=== PATIENT | female | born 1950 | race Caucasian/White ===

== ENCOUNTER 2017-08-27 01:25 | Emergency (ER) | payer SELFPAY ==
[~2017-08-27] VITALS: Ht 170.2 cm; Wt 74.4 kg
[~2017-08-27 01:25] MED LIST: ALPR.25 PO
[2017-08-27 01:40] VITALS: BP 190/84; PULSE 73; RESP 18; TEMP 97.6; O2SAT 97
[2017-08-27 02:40] VITALS: RESP 16; O2SAT 96
[2017-08-27 02:49] LABS: AUTOMATED NEUTROPHIL # 4.3 TH/MM3 (1.8-7.7); BASOPHIL % 0.5 % (0.0-2.0); EOSINOPHIL # 0.1 TH/MM3 (0-0.4); EOSINOPHIL % 1.6 % (0.0-4.0); HEMOGLOBIN 14.1 GM/DL (11.6-15.3); LYMPH % 28.8 % (9.0-44.0); MEAN CELL VOLUME 89.8 FL (80.0-100.0); MEAN CORPUSCULAR HEMOGLOBIN 30.8 PG (27.0-34.0); MEAN CORPUSCULAR HGB CONC 34.3 % (32.0-36.0); MEAN PLATELET VOLUME 7.4 FL (7.0-11.0); MONO % 8.4 % (0.0-8.0); MONOCYTE # 0.6 TH/MM3 (0-0.9); NEUT % 60.7 % (16.0-70.0); PLATELET COUNT 245 TH/MM3 (150-450); RED BLOOD COUNT 4.57 MIL/MM3 (4.00-5.30); RED CELL DISTRIBUTION WIDTH 12.3 % (11.6-17.2)
--- NOTE | 2017-08-27 02:50 | PD ---
HPI Chief Complaint: Hypertension Time Seen by Provider: 02:22 Travel History International Travel<30 days: No Contact w/Intl Traveler<30days: No Traveled to known affect area: No History of Present Illness HPI 67-year-old female presents to the emergency department by private transportation for evaluation of elevated blood pressure. Patient states she has intermittent and sporadic blood pressure elevation but is not treated for hypertension and is not on any antihypertensive medications. Patient states that periodically she will feel like she has a tremor or feel like she is shaking or that she has a dry throat and when she does have these episodes. Patient is unable to identify specific exacerbating or alleviating factors. Patient does report that she did have an argument with her father this evening prior to onset of symptoms. Patient denies any associated symptoms such as headache visual disturbance confusion speech disturbance chest pain palpitations shortness of breath nausea vomiting neck jaw back shoulder arm or abdominal pain and also denies any upper or lower extremity numbness tingling or weakness or ataxia of gait. Patient previously has been treated with antianginals but has chosen not to take them. PFSH Past Medical History Narrative Medical Palpitations anxiety situational hypertension; breast augmentation time intact; nursing notes reviewed Anxiety: Yes Heart Rhythm Problems: Yes (hx of palpaitations) Diminished Hearing: No Tetanus Vaccination: > 5 Years Influenza Vaccination: No ?: Not Menopausal: Yes : 1 Para: 1 Tubal Ligation: Yes Past Surgical History Other Surgery: Yes (tummy tuck, breast augmentation, nose and bra lift) Social History Alcohol Use: No Tobacco Use: No Substance Use: No Allergies-Medications (Allergen,Severity, Reaction): Coded Allergies: doxycycline (Unverified Allergy, Unknown, 08/27/17) minocycline (Unverified Allergy, Unknown, 08/27/17) tigecycline (Unverified Allergy, Unknown, 08/27/17) Reported Meds & Prescriptions Reported Meds & Active Scripts Active Xanax (Alprazolam) 0.25 Mg Tab 0.25 Mg PO Q12HR PRN Amlodipine (Amlodipine Besylate) 5 Mg Tab 2.5 Mg PO DAILY Review of Systems Except as stated in HPI: all other systems reviewed are Neg Physical Exam Narrative GENERAL: Well-developed well-nourished female no acute distress or respiratory distress; GCS 15 SKIN: Warm and dry. HEAD: Atraumatic. Normocephalic. EYES: Pupils equal and round. No scleral icterus. No injection or drainage. ENT: No nasal bleeding or discharge. Mucous membranes pink and moist. NECK: Trachea midline. No JVD. CARDIOVASCULAR: Regular rate and rhythm. RESPIRATORY: No accessory muscle use. Clear to auscultation. Breath sounds equal bilaterally. GASTROINTESTINAL: Abdomen soft, non-tender, nondistended. Hepatic and splenic margins not palpable. MUSCULOSKELETAL: Extremities without clubbing, cyanosis, or edema. No obvious deformities. NEUROLOGICAL: Awake and alert. No obvious cranial nerve deficits. Motor grossly within normal limits. Five out of 5 muscle strength in the arms and legs. No limb ataxia. No pronator drift. Sensory exam grossly intact as tested. DTRs 2+ and equal bilaterally without clonus. Normal speech. PSYCHIATRIC: Appropriate mood and affect; insight and judgment normal. Data Data Last Documented VS Vital Signs Date Time Temp Pulse Resp B/P (MAP) Pulse Ox O2 Delivery O2 Flow Rate FiO2 08/27/17 04:09 62 16 156/69 (98) 97 08/27/17 02:52 Room Air 08/27/17 01:40 97.6 Orders Orders Electrocardiogram (08/27/17 02:22) Basic Metabolic Panel (Bmp) (08/27/17 02:22) B-Type Natriuretic Peptide (08/27/17 02:22) Ckmb (Isoenzyme) Profile (08/27/17 02:22) Complete Blood Count With Diff (08/27/17 02:22) Magnesium (Mg) (08/27/17 02:22) Prothrombin Time / Inr (Pt) (08/27/17 02:22) Act Partial Throm Time (Ptt) (08/27/17 02:22) Troponin I (08/27/17 02:22) Ecg Monitoring (08/27/17 02:22) Bilateral Bp Monitoring (08/27/17 02:22) Iv Access Insert/Monitor (08/27/17 02:22) Oximetry (08/27/17 02:22) Urinalysis - C+S If Indicated (08/27/17 02:52) CKMB (08/27/17 02:35) CKMB% (08/27/17 02:35) Ed Discharge Order (08/27/17 03:51) Labs Laboratory Tests Test 08/27/17 02:35 08/27/17 02:50 White Blood Count 7.0 TH/MM3 Red Blood Count 4.57 MIL/MM3 Hemoglobin 14.1 GM/DL Hematocrit 41.0 % Mean Corpuscular Volume 89.8 FL Mean Corpuscular Hemoglobin 30.8 PG Mean Corpuscular Hemoglobin Concent 34.3 % Red Cell Distribution Width 12.3 % Platelet Count 245 TH/MM3 Mean Platelet Volume 7.4 FL Neutrophils (%) (Auto) 60.7 % Lymphocytes (%) (Auto) 28.8 % Monocytes (%) (Auto) 8.4 % Eosinophils (%) (Auto) 1.6 % Basophils (%) (Auto) 0.5 % Neutrophils # (Auto) 4.3 TH/MM3 Lymphocytes # (Auto) 2.0 TH/MM3 Monocytes # (Auto) 0.6 TH/MM3 Eosinophils # (Auto) 0.1 TH/MM3 Basophils # (Auto) 0.0 TH/MM3 CBC Comment DIFF FINAL Differential Comment Prothrombin Time 10.6 SEC Prothromb Time International Ratio 1.0 RATIO Activated Partial Thromboplast Time 28.2 SEC Blood Urea Nitrogen 21 MG/DL Creatinine 0.87 MG/DL Random Glucose 101 MG/DL Calcium Level 8.8 MG/DL Magnesium Level 2.2 MG/DL Sodium Level 139 MEQ/L Potassium Level 3.7 MEQ/L Chloride Level 105 MEQ/L Carbon Dioxide Level 27.5 MEQ/L Anion Gap 7 MEQ/L Estimat Glomerular Filtration Rate 65 ML/MIN Total Creatine Kinase 127 U/L Creatine Kinase MB 1.6 NG/ML Troponin I LESS THAN 0.02 NG/ML B-Type Natriuretic Peptide 20 PG/ML Urine Collection Type CLEAN CATCH Urine Color YELLOW Urine Turbidity CLEAR Urine pH 5.0 Urine Specific [place] 1.010 Urine Protein NEG mg/dL Urine Glucose (UA) NEG mg/dL Urine Ketones 15 mg/dL Urine Occult Blood SMALL Urine Nitrite NEG Urine Bilirubin NEG Urine Urobilinogen 0.2 MG/DL Urine Leukocyte Esterase TRACE Urine WBC 0-2 /hpf Urine Squamous Epithelial Cells 0-5 /hpf Urine Mucus RARE /lpf Microscopic Urinalysis Comment CULT NOT INDICATED MDM Medical Decision Making Medical Screen Exam Complete: Yes Emergency Medical Condition: Yes Medical Record Reviewed: Yes Interpretation(s) EKG: Sinus bradycardia rate [address] elevation injury pattern or ectopy noted Differential Diagnosis Hypertension, hypertensive urgency, atypical chest pain, electrolyte disturbance , anxiety Narrative Course At 3:30 AM EKG lab values found to be grossly within normal range; patient noted to have trending downward blood pressure but remains hypertensive given dose of amlodipine and will be provided prescription for amlodipine with recommendation for close follow-up with her primary care provider regarding blood pressure management. Diagnosis Primary Impression: HTN (hypertension) Referrals: Primary Care Physician call for appointment Patient Instructions: General Instructions Additional Instructions: Follow-up with your primary care provider Take medication as prescribed Monitor blood pressure twice daily at the same time Return to the emergency department for any concerns or change in condition Med/Other Pt SpecificInfo: Prescription(s) given Scripts Alprazolam (Xanax) 0.25 Mg Tab 0.25 MG PO Q12HR Y for ANXIETY, #4 TAB 0 Refills Prov: Chhaya Olmedo MD 08/27/17 Amlodipine (Amlodipine) 5 Mg Tab 2.5 MG PO DAILY for Blood Pressure Management, #30 TAB 0 Refills Prov: Chhaya Olmedo MD 08/27/17 Disposition: 01 DISCHARGE HOME Condition: Stable Chhaya Olmedo MD Aug 27, 2017 02:50
[2017-08-27 02:52] VITALS: BP_SYST 169; BP_SYST 171; BP_DIAS 68; BP_DIAS 75; PULSE 61; RESP 14; O2SAT 97
[2017-08-27 02:56] LABS: CHLORIDE 105 MEQ/L (98-107); SODIUM (NA) 139 MEQ/L (136-145)
[2017-08-27 02:59] LABS: CALCIUM 8.8 MG/DL (8.5-10.1)
[2017-08-27 03:00] LABS: BICARBONATE 27.5 MEQ/L (21.0-32.0); BLOOD UREA NITROGEN 21 MG/DL (7-18); GLUCOSE,RANDOM 101 MG/DL (74-106); MAGNESIUM 2.2 MG/DL (1.5-2.5)
[2017-08-27 03:01] LABS: BILIRUBIN, URINE NEG (NEG); BLOOD, URINE SMALL (NEG); GLUCOSE,URINE NEG (NEG); KETONE, URINE 15 mg/dL (NEG); NITRITE,URINE NEG (NEG); URINE COLOR YELLOW (YELLW/STRAW); URINE LEUKOCYTE ESTERASE TRACE (NEG)
[2017-08-27 03:01] LABS: PROTHROMBIN TIME - PATIENT 10.6 SEC (9.8-11.6)
[2017-08-27 03:03] LABS: CREATININE 0.87 MG/DL (0.50-1.00); GLOMERULAR FILTRATION RATE 65 ML/MIN (>89)
[2017-08-27 03:08] LABS: TROPONIN I LESS THAN 0.02 NG/ML (0.02-0.05)
[2017-08-27 03:14] LABS: SQUAMOUS EPITHELIAL CELL URINE 0-5 /hpf (0-5)
[2017-08-27 03:17] LABS: MUCUS URINE RARE /lpf (OCC); WBC, URINE 0-2 /hpf (0-5)
[2017-08-27] MEDS ORDERED: ALPR.25 PO (03:54)
[2017-08-27] MEDS ORDERED: AMLO5TAB2 PO (03:54)
[2017-08-27 04:09] VITALS: BP 156/69
--- NOTE | 2017-08-27 18:51 | EKG ---
Date Performed: 08/27/2017 Time Performed: 02:43:36 PTAGE: 67 years EKG: SINUS BRADYCARDIA BORDERLINE ECG Since the prior tracing, there has been no significant janet nge PREVIOUS TRACING : 06/23/2013 17.22 DOCTOR: Thai Quan Interpretating Date/Time 08/27/2017 18:48:43
== END 2017-08-27 04:12 | disposition home or self-care (01) ==
LOC: PHED 01:25
DX: I10 Essential (primary) hypertension (principal); R00.1 Bradycardia, unspecified
CPT/HCPCS: 80048; 81001; 82550; 82552; 83735; 83880; 84484; 85025; 85610; 85730; 93005